=== PATIENT | female | born 1990 | race Caucasian/White ===

== ENCOUNTER → 2019-01-06 | Outpatient (CLI) | payer BC ==
[~2019-01-06] MED LIST: DIATRIZOATE MEGL/DIATRIZOA SOD 30 ML BTL PO ONE; IOPAMIDOL 370 MG/ML 200 ML INFUS..BTL INJ ONE; SODIUM CHLORIDE 0.9% 50ML 50 ML ONE
--- NOTE | 2019-01-06 17:48 | Diagnostic Imaging Report ---
CT of the abdomen and pelvis, with contrast, 01/06/2019. History: Lower abdominal pain and bloating. Comparison: None available. Technique: Multidetector CT scanning of the abdomen and pelvis was performed from the level of the lung bases to the inferior pubic rami after intravenous and oral administration of contrast. Coronal and sagittal multiplanar reformations were obtained. RADIATION DOSE: Total DLP: 803 mGy*cm Dose modulation, iterative reconstruction, and/or weight based adjustment of the mA/kV was utilized to reduce the radiation dose to as low as reasonably achievable. Discussion: LUNG BASES: No visualized abnormalities. ABDOMEN: A 6 mm hypodensity is present in the lateral aspect of the left kidney which is too small to characterize. The liver, gallbladder, biliary tree, spleen, pancreas, adrenal glands, and kidneys are otherwise normal. The hepatic vein, portal vein, and splenic vein are patent. The abdominal aorta is within normal limits for size. The stomach, small bowel, and large bowel are unremarkable. There is no evidence of adenopathy or free fluid. A small fat-containing umbilical hernia is present. PELVIS: The bladder, uterus, adnexa are unremarkable. There is no evidence of free fluid or adenopathy. BONES AND SOFT TISSUES: Degenerative changes are present throughout the lumbar spine without evidence of lytic or sclerotic lesion. IMPRESSION: Subcentimeter left renal hypodensity which is too small to characterize and small fat-containing umbilical hernia. Otherwise unremarkable CT of the abdomen and pelvis. Signed by: Jordi Espinal on 01/06/2019 5:44 PM
== END ==
LOC: CT 14:42
PROVIDERS: ATTEND Internal Medicine Gastroenterology
DX: R10.9 Unspecified abdominal pain (principal)
CPT/HCPCS: 74177; 81025; Q9967